=== PATIENT | male | born 1970 | race Caucasian/White ===

== ENCOUNTER 2016-07-29 16:01 | Day surgery (SDC) | payer BC ==
--- NOTE | ~2016-07-29 | OP ---
Record Of Operation [facility] [address] [place]. [address] NAME: ИРИНА SAENZ : 72 STATUS : [facility]#: [id number] AGE: 46 ADM/REG DATE : 07/29/16 MR#: [id number] REPORT SERV DATE: 07/29/16 DICTATED BY: RAVEN QUEZADA DATE: 07/29/16 REPORT STATUS : Draft TRANSCRIBED BY: MODMario DATE: 07/29/16 DATE OF PROCEDURE: 07/29/2016 TITLE OF OPERATION: Cystourethroscopy, left retrograde pyelogram, left ureteroscopy with laser lithotripsy and basket stone extraction, and placement of 6 x 26 left ureteral stent. PREOPERATIVE DIAGNOSIS: Left renal and ureteral stones. POSTOPERATIVE DIAGNOSIS: Left renal and ureteral stones. INDICATIONS: Mr. Saenz is a 46-year-old male with a two-month history of left flank pain. On KUB, he had a distal ureteral stone as well as a renal pelvis stone. He is here for definitive therapy. ANESTHESIA: General. COMPLICATIONS: None. IMPLANT: 6 x 26 left ureteral stent. SPECIMENS: None. NARRATIVE: The patient was brought to the operating room, identified by his wristband. General anesthesia was induced. Ancef was given for preoperative antibiotics. He was placed in dorsal lithotomy position, prepped and draped in sterile fashion. A cystoscope was placed into his urethra and into his bladder. There was a small median lobe of his prostate. The left ureteral orifice was identified and cannulated with a Sensor wire. A 5- Uzbek open-ended catheter was placed into the distal ureter. Retrograde pyelogram was shot, which showed a distal ureteral stone and hydronephrosis. A wire was placed up past the stone. The scope was removed. A rigid ureteroscope was placed alongside the wire. The stone was encountered. It was fragmented in multiple small pieces using a 200 micron holmium laser fiber. These pieces were removed sequentially. The ureter was then free of stone. Next, a flexible ureteroscope was placed over the wire to the renal pelvis. A solitary 5 mm stone was encountered in the mid pole calyx. Using the same 200 micron holmium laser fiber, the stone was fragmented into numerous small submillimeter pieces. The pieces were begun to be basketed out of the renal pelvis. The kidney was sequentially inspected. No other stones were found. A wire was placed back up into the kidney. A 6 x 26 ureteral stent was placed over the wire into the kidney under standard conditions. The proximal coil was in the upper pole and distal coil was in the bladder. A string was left. The bladder was drained. The stent was taped to the patient's penis. The patient was awoken from anesthesia and transferred to the recovery room in stable condition. He will follow up on Tuesday for stent removal. J/ANAL Record Of [address] [address] NAME: ИРИНА SAENZ : 72 STATUS : [facility] PAT#: [id number] AGE: 46 ADM/REG DATE : 07/29/16 MR#: [id number] REPORT SERV DATE: 07/29/16 DICTATED BY: RAVEN QUEZADA DATE: 07/29/16 REPORT STATUS : Draft TRANSCRIBED BY: DEEPTI DATE: 07/29/16 Raven Quezada MD / [id number] CC: MD Kenn[facility] [place] [facility]
[~2016-07-29 16:01] MED LIST: CONCERTA27 MG PO; ENDOCET1 TA1 PO; ENDOCET1 TAB PO; FIBERCON PO; FLOMAX4 PO; HYDRANGEA PO; PR25 PO; RAPAFLO8 MG PO
[2016-07-29 16:52] LABS: ASCORBIC ACID (UR NOT ORDER) 40 (NEG); BILIRUBIN, URINE NEGATIVE (NEG); KETONE, URINE 80 MG/DL (NEG); LEUKOCYTE ESTERASE(NOT OR NEG (NEG); WBC (NOT ORDERED) (RFLEX) 2 (0-5)
[2016-07-29 17:26] LABS: HEMOGLOBIN 12.5 g/dL (13.6-17.8)
[2016-07-29 17:30] LABS: HEMATOCRIT 36.3 % (40.0-51.0)
== END 2016-07-29 21:32 | disposition home or self-care (01) ==
LOC: SDC 16:01
PROVIDERS: Urology
PROC: BT1FYZZ Fluoroscopy of Left Kidney, Ureter and Bladder using Other Contrast (ICD-10-PCS; 2016-07-29)
PROC: 0TF78ZZ Fragmentation in Left Ureter, Via Natural or Artificial Opening Endoscopic (ICD-10-PCS; principal; 2016-07-29 17:45)
PROC: 0T778DZ Dilation of Left Ureter with Intraluminal Device, Via Natural or Artificial Opening Endoscopic (ICD-10-PCS; 2016-07-29 17:45)
DX: N13.2 Hydronephrosis with renal and ureteral calculous obstruction (principal); G47.33 Obstructive sleep apnea (adult) (pediatric); Z99.89 Dependence on other enabling machines and devices; Z90.89 Acquired absence of other organs; Z98.890 Other specified postprocedural states
CPT/HCPCS: 74000; 74420; 81001; 85014; 85018; C1758; C2617; J0330; J0690; J1885; J2250; J2405; J2710; J3010